=== PATIENT | female | born 1975 | race Caucasian/White ===

== ENCOUNTER 2018-07-28 03:18 | Outpatient (CLI) | payer MEDICARE, MEDICAID ==
[~2018-07-28 03:18] MED LIST: CYCL-1 PO; MESA400C3 PO; OMEP20TA5 PO; PRED10TA23 PO
== END 2018-07-28 23:59 | disposition home or self-care (01) ==
LOC: DIABETIC 03:18
PROVIDERS: ATTEND Physician Assistant
DX: Z71.3 Dietary counseling and surveillance (principal); E66.8 Other obesity; E88.81 Metabolic syndrome and other insulin resistance; Z68.39 Body mass index [BMI] 39.0-39.9, adult; Z79.899 Other long term (current) drug therapy
CPT/HCPCS: 97802

== ENCOUNTER 2019-07-14 06:15 | Day surgery (SDC) | payer MEDICARE, MEDICAID ==
[2019-07-10 14:17] LABS: BASOPHILS % (AUTO) 0.5 % (0-1); EOSINOPHILS # (AUTO) 0.1 X10'3 (0-0.9); EOSINOPHILS % (AUTO) 1.6 % (0-6); LYMPHOCYTES # (AUTO) 1.5 X10'3 (1.1-4.8); LYMPHOCYTES % (AUTO) 20.5 % (21-51); MEAN CORPUSCULAR HEMOGLOBIN 21.7 PG (27.0-31.0); MEAN CORPUSCULAR HGB CONC 31.6 g/dL (33.0-36.5); MEAN CORPUSCULAR VOLUME 68.6 FL (78-98); MEAN PLATELET VOLUME 7.3 FL (7.4-10.4); MONOCYTES # (AUTO) 0.4 X10'3 (0-0.9); NEUTROPHILS # (AUTO) 5.3 X10'3 (1.8-7.7); NEUTROPHILS % (AUTO) 71.4 % (42-75); PRE OP HEMATOCRIT 33.8 % (35.0-45.0); PRE OP PLATELET COUNT 351 X10'3 (140-440); RED BLOOD COUNT 4.92 X10'6 (4.20-5.60); RED CELL DISTRIBUTION WIDTH 17.9 % (11.5-14.5)
[2019-07-10 14:22] LABS: PRE OP HEMOGLOBIN 10.7 g/dL (12.0-16.0)
[2019-07-10 14:33] LABS: ALBUMIN 3.4 G/DL (3.4-5.0); ALBUMIN/GLOBULIN RATIO 0.9 (1.1-1.5); ALKALINE PHOSPHATASE 76 IU/L (46-116); BLOOD UREA NITROGEN 15 MG/DL (7-18); BUN/CREATININE RATIO 17.4 (6.6-38.0); CALCIUM 8.2 MG/DL (8.5-10.1); CHLORIDE 106 MMOL/L (99-107); CREATININE 0.86 MG/DL (0.40-0.90); PRE OP ALT 36 U/L (30-65); PRE OP ANION GAP 5 (8-16); PRE OP AST 13 U/L (10-37); PRE OP BILIRUB, TOTAL 0.3 MG/DL (0.0-1.0); PRE OP GLUCOSE 126 MG/DL (70-104); PRE OP POTASSIUM 4.3 MMOL/L (3.4-5.1); PRE OP SODIUM 139 MMOL/L (135-145); TOTAL CARBON DIOXIDE 28.1 MMOL/L (24-32); TOTAL PROTEIN 7.2 G/DL (6.4-8.2); eGFR 71 ML/MIN
[2019-07-10 17:45] LABS: PLATELET ESTIMATE NORMAL; POLYCHROMASIA FEW
[2019-07-10 17:46] LABS: ANISOCYTOSIS 1+; HYPOCHROMASIA 1+; MICROCYTOSIS 2+
[2019-07-14] VITALS (8 sets, daily range): BP systolic 119–145; BP diastolic 70–84
[~2019-07-14] VITALS: Ht 154.9 cm; Wt 105.1 kg
[~2019-07-14 06:15] MED LIST changes: -CYCL-1 PO; -MESA400C3 PO; -PRED10TA23 PO; +cefazolin/dext.iso 2gm/100 ML IV ONE; +famotidine 20mg tablet PO ONE; +ringers solution, lacted 1,000 ML IV SCH
[2019-07-14] MEDS ORDERED: BUPIVAcaine/PF 2.5 mg/ml (0.25%) 30ml vial ONE (06:42)
[2019-07-14] MEDS ORDERED: LIDOcaine 0.5% (5mg/ml) 50ml vial ONE (07:16)
[2019-07-14] MEDS ORDERED: morphine 4 MG/ML inj SYRINge IV PRN ×2 (08:35)
[2019-07-14] MEDS ORDERED: proCHLORperazine 10 MG/2 ml inj IV PRN (08:35)
[2019-07-14] MEDS ORDERED: ringers solution, lacted 1,000 ML IV SCH (08:35)
[2019-07-14] MEDS ORDERED: meperidine/PF 25mg/ml syringe IV PRN ×3 (08:35)
[2019-07-14] MEDS ORDERED: ondansetron/PF 4mg/2ml inj IV PRN (08:35)
[2019-07-14] MEDS ORDERED: fentaNYL/PF 50MCG/1 ML 2ML syringe ONE (09:16)
[2019-07-14] MEDS ORDERED: MIDAZolam 5mg/5ml vial ONE (09:17)
[2019-07-14] MEDS ORDERED: propofol inj 20 ML IV ONE (09:45)
--- NOTE | 2019-07-14 10:00 | NUR ---
ADMITTED TO PACU FROM OR ACCOMPANIED BY ANESTHESIA. INTIAL PHYSICAL ASSESSMENT DONE AND RECORDED. AWAKE AND RESPONSE ON ARRIVE YO PACU, REPORT RECEIVED FROM ANESTHESIA.
--- NOTE | 2019-07-14 11:00 | NUR ---
Discharge criteria met, discharge instructions given, demonstrates verbal understanding. Discharged home in good condition.
== END 2019-07-14 11:00 | disposition home or self-care (01) ==
LOC: PAS 06:15
PROVIDERS: ATTEND Orthopaedic Surgery Hand Surgery
DX: G56.01 Carpal tunnel syndrome, right upper limb (principal); G56.21 Lesion of ulnar nerve, right upper limb; Z98.890 Other specified postprocedural states; Z87.891 Personal history of nicotine dependence; Z88.2 Allergy status to sulfonamides; Z79.899 Other long term (current) drug therapy
CPT/HCPCS: 29848; 36415; 64718; 80053; 82948; 85025; J2001; J2250; J2704; J3010; J3490; A4215; A6449; A7000; J7120

== ENCOUNTER 2019-08-21 05:20 | Day surgery (SDC) | payer MEDICARE, MEDICAID ==
[~2019-08-21] VITALS: Ht 154.9 cm; Wt 107.0 kg
[~2019-08-21 05:20] MED LIST changes: -cefazolin/dext.iso 2gm/100 ML IV ONE; -famotidine 20mg tablet PO ONE
[2019-08-21 05:30] VITALS: BP 151/79
[2019-08-21] MEDS ORDERED: cefazolin/dext.iso 2gm/50ml 50 ML IV ONE (05:30)
[2019-08-21] MEDS ORDERED: famotidine 20mg tablet PO ONE (05:30)
[2019-08-21] MEDS ORDERED: LIDOcaine 1% (10mg/ml) 2ml vial ONE (05:39)
[2019-08-21 06:01] LABS: ISTAT CREATININE 0.8 mg/dL (0.6-1.1); ISTAT HGB 11.6 g/dl (12.0-16.0); ISTAT IONIZED CALCIUM 1.18 mmol/L (1.03-1.32); ISTAT K 3.9 mmol/L (3.5-5.1); POC BUN/CREATININE RATIO 21.3 (6.6-38.0)
[2019-08-21] MEDS ORDERED: BUPIVAcaine/PF 2.5mg/ml (0.25%) 10ml vial ONE ×2 (06:56→07:55)
[2019-08-21] MEDS ORDERED: LIDOcaine 0.5% (5mg/ml) 50ml vial ONE (07:07)
[2019-08-21] MEDS ORDERED: ringers solution, lacted 1,000 ML IV SCH (07:09)
[2019-08-21] MEDS ORDERED: fentaNYL/PF 50MCG/1 ML 2ML syringe IV PRN ×2 (07:10)
[2019-08-21] MEDS ORDERED: labetalol 20mg/4ml (5mg/ml) syringe IV PRN (07:10)
[2019-08-21] MEDS ORDERED: hydrALAZINE 20mg/ml inj. IV PRN (07:10)
[2019-08-21] MEDS ORDERED: ondansetron/PF 4mg/2ml inj IV PRN (07:10)
[2019-08-21] MEDS ORDERED: morphine 4 MG/ML inj SYRINge IV PRN ×2 (07:10)
[2019-08-21] MEDS ORDERED: MIDAZolam 1mg/ml 10ml vial ONE (07:15)
[2019-08-21] MEDS ORDERED: fentaNYL /PF 50mcg/ml 5ml ampule ONE (07:16)
[2019-08-21] MEDS ORDERED: ketorolac trometh. 30mg/ml inj. ONE (07:17)
[2019-08-21] MEDS ORDERED: propofol inj 20 ML IV ONE (07:19)
[2019-08-21 07:50] VITALS: BP 127/77
--- NOTE | 2019-08-21 07:50 | NUR ---
ADMITTED TO PACU FROM OR ACCOMPANIED BY ANESTHESIA. INTIAL PHYSICAL ASSESSMENT DONE AND RECORDED. AWAKE AND RESPONSE ON ARRIVE YO PACU, REPORT RECEIVED FROM ANESTHESIA.
[2019-08-21 08:00] VITALS: BP 107/69
[2019-08-21 08:10] VITALS: BP 120/72
[2019-08-21 08:20] VITALS: BP 119/72
--- NOTE | 2019-08-21 08:20 | NUR ---
Discharge criteria met, discharge instructions given, demonstrates verbal understanding. Discharged home in good condition.
== END 2019-08-21 08:20 | disposition home or self-care (01) ==
LOC: PAS 05:20
PROVIDERS: ATTEND Orthopaedic Surgery Hand Surgery
DX: G56.02 Carpal tunnel syndrome, left upper limb (principal); G56.22 Lesion of ulnar nerve, left upper limb; Z88.2 Allergy status to sulfonamides
CPT/HCPCS: 29848; 64718; 80047; J1885; J2001; J2250; J2704; J3010; J3490; A4215; A7000; J7120

== ENCOUNTER 2020-01-19 23:32 | Emergency (ER) | payer MEDICARE, MEDICAID ==
[~2020-01-19] VITALS: Ht 152.4 cm; Wt 109.1 kg
[~2020-01-19 23:32] MED LIST changes: -ringers solution, lacted 1,000 ML IV SCH
[2020-01-19 23:35] VITALS: BP 152/121
[2020-01-20] MEDS ORDERED: AMOX-117 PO (00:44)
== END 2020-01-20 00:47 | disposition home or self-care (01) ==
LOC: ER 23:33
DX: J02.0 Streptococcal pharyngitis (principal); G89.29 Other chronic pain; Z90.49 Acquired absence of other specified parts of digestive tract; Z88.2 Allergy status to sulfonamides
CPT/HCPCS: 99283

== ENCOUNTER 2020-07-12 12:58 | Emergency (ER) | payer MEDICARE, MEDICAID ==
[~2020-07-12] VITALS: Ht 152.4 cm; Wt 111.4 kg
[2020-07-12 15:58] LABS: BASOPHILS % (AUTO) 0.4 % (0-1); EOSINOPHILS # (AUTO) 0.1 X10'3 (0-0.9); EOSINOPHILS % (AUTO) 1.1 % (0-6); HEMATOCRIT 39.5 % (35.0-45.0); HEMOGLOBIN 12.9 g/dl (12.0-16.0); LYMPHOCYTES # (AUTO) 1.7 X10'3 (1.1-4.8); LYMPHOCYTES % (AUTO) 15.4 % (21-51); MEAN CORPUSCULAR HEMOGLOBIN 26.8 PG (27.0-31.0); MEAN CORPUSCULAR HGB CONC 32.7 g/dL (33.0-36.5); MEAN CORPUSCULAR VOLUME 81.8 FL (78-98); MEAN PLATELET VOLUME 7.4 FL (7.4-10.4); MONOCYTES # (AUTO) 0.6 X10'3 (0-0.9); MONOCYTES % (AUTO) 5.2 % (2-12); NEUTROPHILS # (AUTO) 8.8 X10'3 (1.8-7.7); NEUTROPHILS % (AUTO) 77.9 % (42-75); PLATELET COUNT 329 X10'3 (140-440); RED BLOOD COUNT 4.82 X10'6 (4.20-5.60); RED CELL DISTRIBUTION WIDTH 15.4 % (11.5-14.5); WHITE BLOOD COUNT 11.3 X10'3 (4.5-11.0)
[2020-07-12 16:04] LABS: CLARITY,URINE SLIGHTLY CLOUDY (Clear); COLOR,URINE YELLOW (Yellow); GLUCOSE, URINE NEGATIVE (Neg); KETONES,URINE NEGATIVE (Neg); LEUKOCYTE ESTERASE ,URINE NEGATIVE (Neg); NITRITES, URINE NEGATIVE (Neg); OCCULT BLOOD,URINE LARGE (Neg); PH,URINE 5.5 (4.8-8.0); PROTEIN,URINE NEGATIVE (Neg); UROBILINOGEN,URINE 0.2 E.U/dL (0.2-1.0)
[2020-07-12 16:06] LABS: UA COLLECTION TYPE CLN CATCH MIDSTREAM
[2020-07-12 16:10] LABS: BACTERIA,URINE 1+ /HPF (Neg); RBC,URINE 0-2 /HPF (0-2); WBC,URINE 0-4 /HPF (0-4)
[2020-07-12 16:11] LABS: MUCUS STRANDS MANY /LPF (Neg); SQUAMOUS EPITHELIAL CELL,UR MANY /LPF (FEW)
[2020-07-12 16:11] LABS: ALANINE AMINOTRANSFERASE 25 U/L (12-78); ALBUMIN 3.3 G/DL (3.4-5.0); ALBUMIN/GLOBULIN RATIO 0.8 (1.1-1.5); ALKALINE PHOSPHATASE 69 IU/L (46-116); ANION GAP 7 (8-16); ASPARTATE AMINO TRANSFERASE 15 U/L (10-37); BILIRUBIN,TOTAL 0.3 MG/DL (0.1-1.0); BLOOD UREA NITROGEN 11 MG/DL (7-18); BUN/CREATININE RATIO 11.8 (6.6-38.0); CALCIUM 8.8 MG/DL (8.5-10.1); CHLORIDE 103 MMOL/L (99-107); CREATININE 0.93 MG/DL (0.40-0.90); GLUCOSE 88 MG/DL (70-104); LIPASE 185 U/L (73-393); POTASSIUM 3.8 MMOL/L (3.5-5.1); SODIUM 137 MMOL/L (135-145); TOTAL CARBON DIOXIDE 26.9 MMOL/L (24-32); TOTAL PROTEIN 7.5 G/DL (6.4-8.2); eGFR 65 ML/MIN
[2020-07-12] MEDS ORDERED: mag hydrox/Alum hydrox/simeth 30ml oral suspension PO ONE (16:45)
[2020-07-12] MEDS ORDERED: LIDOcaine Viscous 15ml cup MM ONE (16:45)
[2020-07-12 18:45] VITALS: BP 159/95
== END 2020-07-12 18:46 | disposition home or self-care (01) ==
LOC: ER 12:58
DX: M54.5 Low back pain (principal); G89.29 Other chronic pain; Z90.49 Acquired absence of other specified parts of digestive tract; Z88.2 Allergy status to sulfonamides; Z79.899 Other long term (current) drug therapy
CPT/HCPCS: 36415; 71045; 80053; 81001; 83690; 85025; 93005; 99285